=== PATIENT | female | born 1990 | race Caucasian/White ===

== ENCOUNTER 2017-05-26 18:10 | Inpatient (IN) | payer OTHER ==
[~2017-05-26] VITALS: Ht 165.1 cm; Wt 104.0 kg
[~2017-05-26 18:10] MED LIST: ePHEDrine/NS 25 MG/5 ML SYR IV PUSH PRN
[2017-05-26] MEDS: LACTATED RINGER'S 1000 ML INJ 1,000 ML IV SCH ×2 (18:37→19:26)
[2017-05-26] MEDS ORDERED: MISOPROSTOL 25 MCG SUPP VAGINAL ONE (19:45)
[2017-05-26] MEDS ORDERED: MISOPROSTOL 25 MCG SUPP - repeat dose VAGINAL PRN (19:45)
[2017-05-26] MEDS ORDERED: NS 1000 ML OTHER PRN (19:45)
[2017-05-26 19:52] LABS: AUTOMATED NEUTROPHIL # 10.8 TH/MM3 (1.8-7.7); BASOPHIL % 0.1 % (0.0-2.0); EOSINOPHIL % 0.2 % (0.0-4.0); HEMATOCRIT 38.8 % (35.0-46.0); HEMO FLAGS DIFF FINAL; LYMPH % 16.5 % (9.0-44.0); LYMPHOCYTE # 2.3 TH/MM3 (1.0-4.8); MEAN CORPUSCULAR HEMOGLOBIN 29.3 PG (27.0-34.0); MEAN CORPUSCULAR HGB CONC 34.1 % (32.0-36.0); MONO % 4.9 % (0.0-8.0); NEUT % 78.3 % (16.0-70.0); PLATELET COUNT 193 TH/MM3 (150-450); RED BLOOD COUNT 4.51 MIL/MM3 (4.00-5.30); RED CELL DISTRIBUTION WIDTH 13.2 % (11.6-17.2); WHITE BLOOD COUNT 13.8 TH/MM3 (4.0-11.0)
[2017-05-26 19:55] LABS: BLOOD, URINE SMALL (NEG); COMMENT (UR) CULTURE INDICATED; CULTURE IF INDICATED CULTURE INDICATED; GLUCOSE,URINE NEG (NEG); KETONE, URINE NEG (NEG); NITRITE,URINE NEG (NEG); PH, URINE 6.5 (5.0-8.5); SQUAMOUS EPITHELIAL CELL URINE 1 /hpf (0-5); URINE COLOR LIGHT-YELLOW (YELLW/STRAW)
[2017-05-26] MEDS: LACTATED RINGER'S 1000 ML IV SCH (20:07)
[2017-05-26] MEDS ORDERED: OXYTOCIN 30 UNITS 500ML PREMIX IV ONE (20:15)
[2017-05-26] MEDS ORDERED: LACTATED RINGER'S 1000 ML BOLUS IV PRN (20:15)
[2017-05-26] MEDS ORDERED: ONDANSETRON HCL 4 MG/2 ML VIAL IV PUSH PRN (20:15)
[2017-05-26] MEDS ORDERED: LIDOCAINE HCL 1% 50 ML VIAL INFIL PRN (20:15)
[2017-05-26] MEDS ORDERED: NS 500 ML BOLUS IV PRN (20:15)
[2017-05-26] MEDS ORDERED: LIDOCAINE HCL 1% 50 ML VIAL I-DERMAL PRN (20:15)
[2017-05-26] MEDS ORDERED: OXYTOCIN 30 UNITS/NS 500ML PREMIX IV SCH (20:15)
[2017-05-26] MEDS ORDERED: CITRIC ACID-SODIUM CITRATE LIQ 30 ML UDC PO SCH (20:15)
[2017-05-26] MEDS ORDERED: MINERAL OIL 10 ML VIAL TOPICAL PRN (20:15)
[2017-05-26] MEDS ORDERED: NS 1000 ML IV PRN (20:15)
[2017-05-26] MEDS ORDERED: fentaNYL 2MCG-BUPIV 0.125% INJ 100 ML ONE (20:19)
[2017-05-26 20:24] VITALS: TEMP 98.3
[2017-05-26] MEDS ORDERED: DO NOT ADMINISTER ANTICOAGULANTS PRN (21:00)
[2017-05-26] MEDS ORDERED: NO SYSTEM NARCOTICS PRN (21:00)
[2017-05-26 22:10] VITALS: BP 128/62; PULSE 74
[2017-05-27] VITALS (71 sets, daily range): BP systolic 104–145; BP diastolic 54–92; PULSE 62–96; RESP 15–18; TEMP 97.9–101; O2SAT 98–100
[2017-05-27] MEDS: fentaNYL 2MCG-BUPIV 0.125% 100 ML EPIDURAL SCH ×3 (03:19→13:22)
[2017-05-27] MEDS: LACTATED RINGER'S 1000 ML IV SCH (06:08)
[2017-05-27] MEDS ORDERED: ONDANSETRON HCL 4 MG/2 ML VIAL ONE (09:03)
[2017-05-27] MEDS: LACTATED RINGER'S 1000 ML INJ 1,000 ML IV SCH (11:51)
[2017-05-27] MEDS ORDERED: PHENYLEPH/NS 1000 MCG/10 ML SYR IV ONE (12:00)
[2017-05-27] MEDS ORDERED: ceFAZolin INJ 1,000 MG VIAL IV ONE (12:00)
[2017-05-27] MEDS ORDERED: DEXAMETHASONE SOD PHOS 4 MG/ML VIAL IV ONE (12:00)
[2017-05-27] MEDS ORDERED: MIDAZOLAM HCL 2 MG/2 ML VIAL IV ONE (12:00)
[2017-05-27] MEDS ORDERED: KETOROLAC TROMETHAMINE 30 MG/ML (IVP) VIAL IV PUSH ONE (12:00)
[2017-05-27] MEDS ORDERED: ONDANSETRON HCL 4 MG/2 ML VIAL IV PUSH ONE (12:00)
[2017-05-27] MEDS ORDERED: MORPHINE SULFATE PF 5 MG/10 ML VIAL ONE (12:00)
[2017-05-27] MEDS ORDERED: LACTATED RINGER'S 1000 ML INJ 1,000 ML IV ONE (12:00)
[2017-05-27] MEDS ORDERED: LIDOCAINE 2%/EPINEPHrine PF 1:200,000 20ML SDV OTHER ONE (12:00)
[2017-05-27] MEDS ORDERED: OXYTOCIN 10 UNIT/ML AMP IV ONE (12:00)
[2017-05-27] MEDS ORDERED: SODIUM BICARBONATE 8.4% INJ 50 MEQ/50 ML SYR ONE (13:31)
[2017-05-27] MEDS ORDERED: EPIDURAL-NO SYSTEMIC NARCOTICS PRN (14:15)
[2017-05-27] MEDS ORDERED: EPIDURAL-NALOXONE HCL 0.4 MG/ML AMP IV PUSH PRN (14:15)
[2017-05-27] MEDS ORDERED: EPIDURAL-DIPHENHYDRAMINE HCL 50 MG/ML VIAL IV PUSH PRN (14:15)
[2017-05-27] MEDS ORDERED: EPIDURAL-DIPHENHYDRAMINE HCL 50 MG CAP PO PRN (14:15)
[2017-05-27] MEDS ORDERED: EPIDURAL-DO NOT ADMINISTER ANTICOAGULANTS PRN (14:15)
[2017-05-27] MEDS ORDERED: ACETAMINOPHEN 1000 MG/100 ML 100 ML IV ONE (15:14)
[2017-05-27] MEDS ORDERED: ZOLPIDEM TARTRATE 5 MG TAB PO PRN (15:15)
[2017-05-27] MEDS ORDERED: ACETAMINOPHEN 325 MG TAB PO PRN (15:15)
[2017-05-27] MEDS ORDERED: SODIUM CHLORIDE 0.9% FLUSH 10 ML FLUSH IV FLUSH PRN (15:15)
[2017-05-27] MEDS ORDERED: ONDANSETRON HCL 4 MG/2 ML VIAL IV PUSH PRN (15:15)
[2017-05-27] MEDS ORDERED: SIMETHICONE 80 MG CHEWABLE TAB PO PRN (15:15)
[2017-05-27] MEDS ORDERED: OXYTOCIN 30 UNITS-500ML PREMIX 500 ML IV ONE ×2 (15:15)
--- NOTE | 2017-05-27 15:31 | MP ---
cc: KAMJOSE DATE OF SURGERY: 05/27/2017 PREOPERATIVE DIAGNOSIS 1. Intrauterine at 41 weeks. 2. Failure to progress at 4 cm. 3. Several bradycardias. POSTOPERATIVE DIAGNOSIS 1. Intrauterine at 41 weeks. 2. Failure to progress at 4 cm. 3. Several bradycardias. PROCEDURE Primary low transverse section. ANESTHESIA Epidural. SURGEON Jasper Stokes MD FINDINGS Normal uterus, normal tubes, normal ovaries, normal posterior and anterior cul-de-sac. ESTIMATED BLOOD LOSS 600 cc. COUNTS Correct. COMPLICATIONS None. CONDITION The patient tolerated the procedure well and went to the recovery room in good condition. INDICATION FOR PROCEDURE This patient was an induction last night came in, in active labor. She did not need any Cytotec but was in active labor. She got an epidural and despite rupture of membranes and Pitocin which we tried several times the baby would bradycardy down. The patient could not get past 4 cm. At this time we called for a section due to failure to progress. PROCEDURE IN DETAIL The patient was taken to the operating room, identified by name band and verbally. She was given epidural anesthetic. A Devine catheter was inserted. She was prepped and draped for section. A Pfannenstiel incision was taken down to the fascia. The fascia was taken off the rectus muscle by blunt and sharp dissection. The peritoneum was entered under direct vision without complication. The incision was extended with care to avoid the urinary bladder. A bladder blade was placed and a bladder flap created over the lower uterine segment which was well-developed. The uterus was then scored in a transverse manner along the lower uterine segment and taken down in the midline until the uterine cavity was entered. The incision was extended with the surgeon's finger. The vertex was grasped and delivered through the incision without difficulty. The hypopharynx and nasopharynx were suctioned. The remainder of the infant was delivered. The cord was doubly clamped and cut and the handed to the resuscitation team that was present. Cord blood was obtained. The placenta was delivered manually without difficulty. The uterus was curetted twice with a wet lap. The uterine incision was repaired with 2-0 Vicryl a running locking fashion, the second layer imbricating the first. The cul-de-sac and gutters were cleaned of blood and debris with a large amount of irrigation. The uterus was delivered back into the abdomen. The incision was again inspected and was hemostatic. The rectus muscles were re-approximated with 0 Vicryl in an interrupted fashion. The fascia was repaired with 0 Vicryl from lateral to midline bilaterally in a running fashion. The subcutaneous tissue was repaired with 3-0 Vicryl. The skin was repaired with 4-0 Monocryl in a subcuticular manner. Steri-Strips were applied. The wound was sterilely dressed. She tolerated the procedure well and went to the recovery room in good condition. R. MD KRISTEN Abraham/DONG /3:17 PM /3:23 PM
[2017-05-27] MEDS ORDERED: MEPERIDINE HCL 25 MG/ML VIAL IV PRN (16:00)
[2017-05-27] MEDS ORDERED: LACTATED RINGER'S 1000 ML INJ 1,000 ML IV SCH (20:14)
[2017-05-27] MEDS ORDERED: SODIUM CHLORIDE 0.9% FLUSH 10 ML FLUSH IV FLUSH SCH (21:00)
[2017-05-27] MEDS: oxyCODONE/ACETAMINOPHEN 5 MG/325 MG TAB PO PRN (22:00)
[2017-05-27] MEDS: IBUPROFEN 600 MG TAB PO PRN (22:00)
[2017-05-28] VITALS: BP 110/66; PULSE 90; RESP 18; TEMP 98.3
[2017-05-28] MEDS ORDERED: OXYTOCIN 30 UNITS-500ML PREMIX 500 ML IV PRN (01:15)
[2017-05-28] MEDS: IBUPROFEN 600 MG TAB PO PRN ×2 (04:00→18:24)
[2017-05-28] MEDS: oxyCODONE/ACETAMINOPHEN 5 MG/325 MG TAB PO PRN ×4 (04:00→23:33)
[2017-05-28 08:25] VITALS: BP 116/67; PULSE 98; RESP 16
[2017-05-28 08:50] LABS: BASOPHIL % 0.1 % (0.0-2.0); EOSINOPHIL % 0.2 % (0.0-4.0); HEMATOCRIT 26.6 % (35.0-46.0); HEMO FLAGS DIFF FINAL; LYMPH % 13.8 % (9.0-44.0); LYMPHOCYTE # 2.1 TH/MM3 (1.0-4.8); MEAN CELL VOLUME 86.9 FL (80.0-100.0); MEAN CORPUSCULAR HEMOGLOBIN 28.9 PG (27.0-34.0); MEAN CORPUSCULAR HGB CONC 33.2 % (32.0-36.0); MONO % 6.6 % (0.0-8.0); NEUT % 79.3 % (16.0-70.0); PLATELET COUNT 144 TH/MM3 (150-450); RED BLOOD COUNT 3.07 MIL/MM3 (4.00-5.30); RED CELL DISTRIBUTION WIDTH 13.6 % (11.6-17.2); WHITE BLOOD COUNT 15.2 TH/MM3 (4.0-11.0)
[2017-05-28] MEDS: DOCUSATE SODIUM 50 MG/SENNA 8.6 MG TAB PO PRN ×2 (08:56→20:20)
[2017-05-28] MEDS ORDERED: HYDROmorphone HCL PF 1 MG/ML VIAL IV PUSH ONE (15:30)
--- NOTE | 2017-05-28 15:44 | HHI.OB ---
Subjective Post Operative Day: 1 Remarks Doing well Pain is well controlled Bleeding is normal Baby is doing well Objective Vitals/I&O Vital Signs Date Time Temp Pulse Resp B/P (MAP) Pulse Ox O2 Delivery O2 Flow Rate FiO2 05/28/17 08:25 98 16 116/67 (83) 05/28/17 00:00 98.3 90 18 110/66 (81) 05/27/17 20:00 98.8 05/27/17 20:00 91 18 106/62 (77) 05/27/17 17:00 85 05/27/17 15:52 86 18 111/55 (73) 98 05/27/17 15:45 18 99 05/27/17 15:45 99.6 05/27/17 15:45 89 112/56 (74) Result Diagram: 05/28/17 0755 Objective Remarks GENERAL: Well-nourished, well-developed patient. CARDIOVASCULAR: Regular rate and rhythm without murmurs, gallops, or rubs. RESPIRATORY: Breath sounds equal bilaterally. No accessory muscle use. ABDOMEN/GI: Abdomen soft, non-tender, bowel sounds present. Incision: Clean, dry and intact. Fundus: Firm, non-tender at umbilicus. GENITOURINARY: Light to moderate bleeding. EXTREMITIES: No cyanosis or edema, non-tender, without signs of DVT. Medications and IVs Current Medications Medications (Trade) Dose Ordered Sig/Cristofer Route Start Time Stop Time Status Last Admin Lactated Ringer's 1,000 ml @ 100 mls/hr Q10H IV 05/27/17 20:14 05/28/17 16:13 Oxytocin 500 ml @ 100 mls/hr UNSCH X1 PRN IV 05/28/17 01:15 05/29/17 01:14 (NS Flush) 2 ml BID IV FLUSH 05/27/17 21:00 (NS Flush) 2 ml UNSCH PRN IV FLUSH 05/27/17 15:15 (Mylicon Chew) 80 mg QID PRN PO 05/27/17 15:15 (Tylenol) 650 mg Q6H PRN PO 05/27/17 15:15 (Motrin) 600 mg Q6H PRN PO 05/27/17 15:15 05/28/17 04:00 (Percocet 5-325 Mg) 1 tab Q4H PRN PO 05/27/17 15:15 (Percocet 5-325 Mg) 2 tab Q4H PRN PO 05/27/17 15:15 05/28/17 08:55 (Anika-Colace) 2 tab Q12H PRN PO 05/27/17 15:15 05/28/17 08:56 (Ambien) 5 mg HS PRN PO 05/27/17 15:15 (M-M-R Ii Inj) 0.5 ml ONCE ONCE SQ 05/28/17 16:00 05/28/17 16:01 (Boostrix Inj) 0.5 ml ONCE ONCE IM 05/28/17 16:00 05/28/17 16:01 (Zofran Inj) 4 mg Q6H PRN IV PUSH 05/27/17 15:15 (Dilaudid Pf Inj) 1 mg ONCE ONCE IV PUSH 05/28/17 15:30 05/28/17 15:31 UNV Assessment/Plan Assessment and Plan POD #1 Doing ok had a terrible time with nurse last nite Pain is not controlled IV dilaudid now. Rest Jasper Stokes MD May 28, 2017 15:44
[2017-05-28] MEDS ORDERED: MEASLES, MUMPS, RUBELLA VACCINE 0.5 ML VIAL SQ ONE (16:00)
[2017-05-28] MEDS ORDERED: DIPHTH/TETANUS/ACEL PERTUSSIS (BOOSTER) 0.5 ML VIAL/PFS IM ONE (16:00)
[2017-05-28 19:55] VITALS: BP 114/62; PULSE 100; RESP 18; TEMP 98.7
[2017-05-29] MEDS: IBUPROFEN 600 MG TAB PO PRN ×3 (01:00→17:19)
[2017-05-29] MEDS: oxyCODONE/ACETAMINOPHEN 5 MG/325 MG TAB PO PRN ×4 (03:23→17:20)
[2017-05-29 08:00] VITALS: BP 96/74; PULSE 74; RESP 19; TEMP 97.7
[2017-05-29] MEDS: DOCUSATE SODIUM 50 MG/SENNA 8.6 MG TAB PO PRN (08:32)
[2017-05-29 10:01] LABS: BASOPHIL % 0.1 % (0.0-2.0); EOSINOPHIL # 0.1 TH/MM3 (0-0.4); EOSINOPHIL % 0.9 % (0.0-4.0); HEMATOCRIT 27.6 % (35.0-46.0); HEMO FLAGS DIFF FINAL; LYMPH % 20.6 % (9.0-44.0); MEAN CELL VOLUME 86.6 FL (80.0-100.0); MEAN CORPUSCULAR HEMOGLOBIN 29.4 PG (27.0-34.0); MONO % 5.7 % (0.0-8.0); NEUT % 72.7 % (16.0-70.0); PLATELET COUNT 155 TH/MM3 (150-450); RED BLOOD COUNT 3.18 MIL/MM3 (4.00-5.30); RED CELL DISTRIBUTION WIDTH 13.6 % (11.6-17.2); WHITE BLOOD COUNT 9.6 TH/MM3 (4.0-11.0)
--- NOTE | 2017-05-29 15:30 | HHI.OB ---
Subjective Post Operative Day: 2 Remarks Doing well Baby is doing well Bleeding is normal Pain is controlled Objective Vitals/I&O Vital Signs Date Time Temp Pulse Resp B/P (MAP) Pulse Ox O2 Delivery O2 Flow Rate FiO2 05/29/17 08:00 97.7 74 19 96/74 (81) 05/28/17 19:55 98.7 100 18 114/62 (79) Result Diagram: 05/29/17 0939 Objective Remarks GENERAL: Well-nourished, well-developed patient. CARDIOVASCULAR: Regular rate and rhythm without murmurs, gallops, or rubs. RESPIRATORY: Breath sounds equal bilaterally. No accessory muscle use. ABDOMEN/GI: Abdomen soft, non-tender, bowel sounds present. Incision: Clean, dry and intact. Fundus: Firm, non-tender at umbilicus. GENITOURINARY: Light to moderate bleeding. EXTREMITIES: No cyanosis or edema, non-tender, without signs of DVT. Medications and IVs Current Medications Medications (Trade) Dose Ordered Sig/Cristofer Route Start Time Stop Time Status Last Admin (NS Flush) 2 ml BID IV FLUSH 05/27/17 21:00 (NS Flush) 2 ml UNSCH PRN IV FLUSH 05/27/17 15:15 (Mylicon Chew) 80 mg QID PRN PO 05/27/17 15:15 (Tylenol) 650 mg Q6H PRN PO 05/27/17 15:15 (Motrin) 600 mg Q6H PRN PO 05/27/17 15:15 05/29/17 08:33 (Percocet 5-325 Mg) 1 tab Q4H PRN PO 05/27/17 15:15 05/28/17 18:25 (Percocet 5-325 Mg) 2 tab Q4H PRN PO 05/27/17 15:15 05/29/17 13:11 (Anika-Colace) 2 tab Q12H PRN PO 05/27/17 15:15 05/29/17 08:32 (Ambien) 5 mg HS PRN PO 05/27/17 15:15 (Zofran Inj) 4 mg Q6H PRN IV PUSH 05/27/17 15:15 Assessment/Plan Assessment and Plan POD #2 Severe anemia will start fe after the percocet, she is Asx now Will d/c home now Jasper Stokes MD May 29, 2017 15:30
--- NOTE | 2017-05-29 15:31 | HHI.DCPOC ---
Discharge Care Plan Diagnosis: (1) delivery delivered Report Symptoms to Your Doctor -Temperature above 100.5 degrees -Redness, of incision or excessive or foul smelling drainage -Unusual pain or calf pain -Increased vaginal bleeding -Painful or difficulty urinating -Feelings of extreme sadness or anxiety after 2 weeks Goals to Promote Your Health * To prevent worsening of your condition and complications * To maintain your health at the optimal level Directions to Meet Your Goals Take your medications as prescribed Follow your dietary instruction Follow activity as directed Ensure plenty of rest for recovery Drink fluids for hydration Keep your appointments as scheduled Take your immunizations and boosters as scheduled If your symptoms worsen call your PCP, if no PCP go to Urgent Care Center or Emergency Room Smoking is Dangerous to Your Health. Avoid second hand smoke Call the 24-hour crisis hotline for domestic abuse at Jasper Stokes MD May 29, 2017 15:31
[2017-05-29] MEDS ORDERED: OXYC1TAB63 PO (15:38)
[2017-05-29] MEDS ORDERED: IBUP-232 PO (15:38)
== END 2017-05-29 18:40 | disposition home or self-care (01) | DRG 766 ==
LOC: H2EB 18:10 → H1EA 05-27 16:05
PROVIDERS: ADMIT Obstetrics & Gynecology; ATTEND Obstetrics & Gynecology
PROC: 10907ZC Drainage of Amniotic Fluid, Therapeutic from Products of Conception, Via Natural or Artificial Opening (ICD-10-PCS; 2017-05-26)
PROC: 10D00Z1 Extraction of Products of Conception, Low, Open Approach (ICD-10-PCS; principal; 2017-05-27)
DX: O62.2 Other uterine inertia (principal); D64.9 Anemia, unspecified; O99.02 Anemia complicating childbirth; O76 Abnormality in fetal heart rate and rhythm complicating labor and delivery; Z37.0 Single live birth; Z3A.41 41 weeks gestation of pregnancy
CPT/HCPCS: 59025; 76816; 76818; 81001; 85025; 86900; 86901; 87086; 90715; J0131; J0690; J1100; J1170; J1885; J2250; J2274; J2370; J2405; J2590; J3010; J7120